=== PATIENT | male | born 1985 | race Caucasian/White ===

== ENCOUNTER 2016-09-04 19:33 | Emergency (ER) | payer MEDICAID, OTHER ==
[~2016-09-04] VITALS: Ht 185.4 cm; Wt 113.4 kg
[2016-09-04] MEDS ORDERED: DOXY100C37 PO (22:38)
[2016-09-04 22:43] VITALS: BP 140/79
[2016-09-04] MEDS ORDERED: DOXYCYCLINE HYCLATE 100 MG TAB PO ONE (22:45)
== END 2016-09-04 22:46 | disposition home or self-care (01) ==
LOC: M ED 20:24
DX: S80.861A Insect bite (nonvenomous), right lower leg, initial encounter (principal); X58.XXXA Exposure to other specified factors, initial encounter; Y92.89 Other specified places as the place of occurrence of the external cause; Y93.89 Activity, other specified; Y99.8 Other external cause status; F17.210 Nicotine dependence, cigarettes, uncomplicated

== ENCOUNTER 2016-11-21 14:26 | Emergency (ER) | payer OTHER ==
[~2016-11-21] VITALS: Ht 182.9 cm; Wt 136.0 kg
[~2016-11-21 14:26] MED LIST: DOXY100C37 PO
[2016-11-21] MEDS ORDERED: IBUPROFEN 800 MG TAB PO ONE (15:45)
[2016-11-21] MEDS ORDERED: METHOCARBAMOL 500 MG TAB PO ONE (15:45)
[2016-11-21] MEDS ORDERED: ROBA500T PO ×2 (16:28→16:59)
[2016-11-21] MEDS ORDERED: IBUP1TAB7 PO (16:28)
[2016-11-21 16:39] VITALS: BP 132/70
--- NOTE | 2016-11-21 16:44 | REP ---
LUMBOSACRAL SPINE: Five views of the lumbosacral spine performed. There is no fracture or dislocation. Vertebral bodies are normal in height and well aligned with normal lumbar lordosis. There is no spondylolysis or spondylolisthesis. Disc spaces are well preserved. Posterior elements are intact. IMPRESSION: Negative lumbosacral spine series. Signed by Al Whiting MD 11/22/2016 05:11 P
[2016-11-21] MEDS ORDERED: IBUP-1022 PO (16:59)
== END 2016-11-21 17:10 | disposition home or self-care (01) ==
LOC: M ED 16:52
DX: S39.012A Strain of muscle, fascia and tendon of lower back, initial encounter (principal); X50.1XXA Overexertion from prolonged static or awkward postures, initial encounter; Y92.9 Unspecified place or not applicable; Y93.9 Activity, unspecified; Y99.9 Unspecified external cause status

== ENCOUNTER → 2016-12-26 | Outpatient (CLI) | payer MEDICAID ==
[~2016-12-26] MED LIST changes: +IBUP-1022 PO; +IBUP1TAB7 PO; +NAPR500T PO; +ROBA500T PO; +SOMA350T PO; +TYLE325T5 PO
== END ==
LOC: M OUTALCOH 13:06
PROVIDERS: ATTEND Psychiatry & Neurology Psychiatry
DX: Z03.89 Encounter for observation for other suspected diseases and conditions ruled out (principal)

== ENCOUNTER → 2017-01-01 | Outpatient (CLI) | payer OTHER ==
--- NOTE | 2017-01-02 08:30 | REP ---
MRI LUMBAR SPINE WITHOUT CONTRAST: HISTORY: Back pain. Decreased signal intensity on T2 weighted images is present in the L3-4 through L5-S1 intervertebral discs. The discs are decreased in height. These findings are consistent with disc degeneration. There is no disc bulge or herniation at the L1-2 and L2-3 levels. The nerves exit the neural foramina without compression. A diffuse disc bulge is present at the L3-4 level. There is minimal compression of the thecal sac. The L3 nerves exit the neural foramina without compression. A diffuse disc bugle and small central disc protrusion are present at the L4-5 level. There is minimal compression of the thecal sac. The L4 nerves exit the neural foramina without compression. A diffuse disc bulge and small disc protrusion central and eccentric to the left are present at the L5-S1 level. The disc protrusion abuts the left S1 nerve. There is no thecal sac compression. The L5 nerves exit the neural foramina without compression. The conus medullaris is normal in appearance terminating at the level of the T12-L1 intervertebral disc. Normal signal intensity is present in the lumbar vertebral bodies. A hemangioma is present in the S1 vertebral body. IMPRESSION: 1. Diffuse disc bugle and the L3-4 level with minimal thecal sac compression. 2. Diffuse disc bugle and small central disc protrusion at the L4-5 level with minimal thecal sac compression. 3. Diffuse disc bugle and small disc protrusion at the L5-S1 level. The disc protrusion abuts the left S1 nerve. Signed by Mo Schroeder MD 01/02/2017 08:44 A
== END ==
LOC: M RAD 17:58
PROVIDERS: ATTEND Family Medicine
DX: M51.26 Other intervertebral disc displacement, lumbar region (principal); M51.27 Other intervertebral disc displacement, lumbosacral region

== ENCOUNTER 2017-02-12 19:12 | Emergency (ER) | payer OTHER ==
[~2017-02-12] VITALS: Ht 182.9 cm; Wt 137.4 kg
[~2017-02-12 19:12] MED LIST changes: -NAPR500T PO; -SOMA350T PO; -TYLE325T5 PO
[2017-02-12] MEDS ORDERED: IBUP1TAB7 PO (19:33)
[2017-02-12] MEDS ORDERED: TYLE325T5 PO (19:33)
[2017-02-12 21:48] VITALS: BP 137/77
[2017-02-12] MEDS ORDERED: KETOROLAC 60 MG/2 ML VIAL (J1885) IM ONE (22:15)
[2017-02-12] MEDS ORDERED: SOMA350T PO (22:20)
[2017-02-12] MEDS ORDERED: NAPR500T PO (22:20)
== END 2017-02-12 22:38 | disposition home or self-care (01) ==
LOC: M ED 19:12
DX: M54.5 Low back pain (principal); G89.29 Other chronic pain; F17.200 Nicotine dependence, unspecified, uncomplicated; Z79.899 Other long term (current) drug therapy
CPT/HCPCS: 96372; 99282; J1885; J3360

== ENCOUNTER 2017-02-18 08:59 | Outpatient (RCR) | payer OTHER ==
[~2017-02-18 08:59] MED LIST changes: +NAPR500T PO; +SOMA350T PO; +TYLE325T5 PO
== END 2017-03-02 ==
LOC: M PT 08:59
PROVIDERS: ATTEND Hospitalist
DX: Z51.89 Encounter for other specified aftercare (principal); M54.40 Lumbago with sciatica, unspecified side; G89.29 Other chronic pain

== ENCOUNTER 2017-03-08 12:00 | Outpatient (RCR) | payer OTHER | END 2017-04-02 | LOC: M PT 12:00 | PROVIDERS: ATTEND Hospitalist | DX: Z51.89 Encounter for other specified aftercare (principal); M54.40 Lumbago with sciatica, unspecified side ==

== ENCOUNTER → 2017-05-07 | Outpatient (REF) | payer OTHER ==
[2017-05-07 14:08] LABS: ALBUMIN/GLOBULIN RATIO 1.14 (1.00-1.93); ALKALINE PHOSPHATASE 81 U/L (45-117); ALT/SGPT 28 U/L (12-78); ANION GAP 6 MEQ/L (8-16); AST/SGOT 14 U/L (7-37); BILIRUBIN,TOTAL 0.4 MG/DL (0.2-1.0); BLOOD UREA NITROGEN 14 MG/DL (7-18); CARBON DIOXIDE LEVEL 30 MEQ/L (21-32); CHLORIDE LEVEL 105 MEQ/L (98-107); CHOLESTEROL LEVEL 182 MG/DL (<200); CREATININE FOR GFR 0.97 MG/DL (0.70-1.30); GLOMERULAR FILTRATION RATE > 60.0 (>60); GLUCOSE, FASTING 80 MG/DL (70-105); POTASSIUM SERUM 4.8 MEQ/L (3.5-5.1); SODIUM LEVEL 141 MEQ/L (136-145); TOTAL PROTEIN 7.5 GM/DL (6.4-8.2); TRIGLYCERIDES LEVEL 74 MG/DL (<150)
== END ==
LOC: M SFHCPLAZ 11:51
PROVIDERS: ATTEND Family Medicine
DX: E66.01 Morbid (severe) obesity due to excess calories (principal); Z83.49 Family history of other endocrine, nutritional and metabolic diseases

== ENCOUNTER 2017-07-01 13:00 | Emergency (ER) | payer MEDICAID, SELFPAY, OTHER | END 2017-07-01 17:13 | disposition home or self-care (01) | LOC: M ED 13:00 | DX: S39.012A Strain of muscle, fascia and tendon of lower back, initial encounter (principal); M54.32 Sciatica, left side; X50.1XXA Overexertion from prolonged static or awkward postures, initial encounter; Y92.9 Unspecified place or not applicable; Y93.9 Activity, unspecified; G89.29 Other chronic pain; Z79.899 Other long term (current) drug therapy | CPT/HCPCS: 99283 ==

== ENCOUNTER → 2017-09-29 | Outpatient (CLI) | payer OTHER | LOC: M RAD 09:52 | DX: S69.91XD Unspecified injury of right wrist, hand and finger(s), subsequent encounter (principal); X58.XXXD Exposure to other specified factors, subsequent encounter; Y92.89 Other specified places as the place of occurrence of the external cause | CPT/HCPCS: 73130 ==

== ENCOUNTER → 2017-09-29 | Outpatient (CLI) | payer OTHER ==
[2017-09-29 09:23] LABS: BASO # 0.1 10^3/uL (0.0-0.2); BASO % 0.9 % (0.0-1.0); EOS # 0.7 10^3/uL (0.0-0.50); EOS % 9.2 % (0.0-3.0); HEMATOCRIT 43.8 % (42.0-52.0); HEMOGLOBIN 15.3 g/dl (13.5-17.5); IMMATURE GRANULOCYTE % 0.7 % (0-3.0); LYMPH % 26.5 % (24.0-44.0); MEAN CORPUSCULAR HEMOGLOBIN 30.5 pg (27.0-33.0); MEAN CORPUSCULAR HGB CONC 34.9 g/dl (32.0-36.5); MEAN CORPUSCULAR VOLUME 87.4 fl (80.0-96.0); MONO # 0.7 10^3/uL (0.0-0.8); MONO % 8.5 % (0.0-5.0); NEUTROPHILS # 4.1 10^3/uL (1.8-7.7); NEUTROPHILS % 54.2 % (36.0-66.0); PLATELET COUNT, AUTOMATED 311 10^3/uL (150-450); RED BLOOD COUNT 5.01 10^6/uL (4.30-6.10); WHITE BLOOD COUNT 7.6 10^3/uL (4.0-10.0)
[2017-09-29 10:03] LABS: FREE T4 1.13 NG/DL (0.76-1.46)
[2017-09-30 10:31] LABS: HIV 1&2 SCREEN CENTAUR NEGATIVE (NEGATIVE)
== END ==
LOC: M LAB 08:57
DX: R61 Generalized hyperhidrosis (principal)
CPT/HCPCS: 84443

== ENCOUNTER → 2018-01-09 | Outpatient (CLI) | payer OTHER | LOC: M PAIN 14:15 | DX: M51.26 Other intervertebral disc displacement, lumbar region (principal); M54.17 Radiculopathy, lumbosacral region; F17.220 Nicotine dependence, chewing tobacco, uncomplicated; Z79.899 Other long term (current) drug therapy | CPT/HCPCS: G0463 ==

== ENCOUNTER 2018-02-10 19:02 | Emergency (ER) | payer OTHER ==
[2018-02-10] MEDS: PERCOCET 5MG/325MG TAB PO (21:11)
[2018-02-10] MEDS: diazePAM 5 MG TAB PO (21:11)
[2018-02-10] MEDS: KETOROLAC 60 MG/2 ML VIAL (J1885) IM (21:12)
== END 2018-02-10 23:46 | disposition home or self-care (01) ==
LOC: M ED 19:02
DX: M51.37 Other intervertebral disc degeneration, lumbosacral region (principal); F17.220 Nicotine dependence, chewing tobacco, uncomplicated
CPT/HCPCS: J1885

== ENCOUNTER → 2018-02-13 | Outpatient (CLI) | payer OTHER | LOC: M PAIN 11:30 | DX: M51.26 Other intervertebral disc displacement, lumbar region (principal); M54.17 Radiculopathy, lumbosacral region; F17.220 Nicotine dependence, chewing tobacco, uncomplicated; E66.01 Morbid (severe) obesity due to excess calories; Z68.43 Body mass index [BMI] 50.0-59.9, adult; Z79.899 Other long term (current) drug therapy | CPT/HCPCS: G0463 ==

== ENCOUNTER → 2018-03-06 | Outpatient (CLI) | payer OTHER ==
[~2018-03-06] MED LIST changes: -DOXY100C37 PO; -IBUP-1022 PO; -IBUP1TAB7 PO; +ISOVUE-M 300 61% 15ML VIAL (Q9967) As Ordered; +LIDOCAINE 1% SDV INJ 30 ML VIAL As Ordered; -NAPR500T PO; -ROBA500T PO; -SOMA350T PO; -TYLE325T5 PO; +diazePAM 5 MG TAB As Ordered; +methylPREDNISolone SUSP 40 MG/ML (DEPO-medrol) VIAL (J1030) As Ordered; +oxyCODONE 5MG TAB As Ordered
== END ==
LOC: M PAIN 11:15
DX: M51.16 Intervertebral disc disorders with radiculopathy, lumbar region (principal); F17.220 Nicotine dependence, chewing tobacco, uncomplicated; Z79.891 Long term (current) use of opiate analgesic; Z79.899 Other long term (current) drug therapy
CPT/HCPCS: J1030

== ENCOUNTER 2018-03-27 09:33 | Emergency (ER) | payer OTHER | END 2018-03-27 11:45 | disposition home or self-care (01) | LOC: M ED 09:33 | DX: S60.221A Contusion of right hand, initial encounter (principal); W22.8XXA Striking against or struck by other objects, initial encounter; Y92.018 Other place in single-family (private) house as the place of occurrence of the external cause; E11.9 Type 2 diabetes mellitus without complications | CPT/HCPCS: 73130 ==

== ENCOUNTER 2018-04-04 15:43 | Emergency (ER) | payer OTHER ==
[2018-04-04] MEDS: IBUPROFEN 800 MG TAB PO (16:30)
[2018-04-04] MEDS: ONDANSETRON 4 MG ORAL DISINTEGRATING TAB (Q0162 PER 1MG) PO (16:30)
[2018-04-04] MEDS: ACETAMINOPHEN 325 MG TAB PO (16:30)
[2018-04-04 16:48] LABS: INFLUENZA A AMPLIFICATION NEGATIVE (NEGATIVE); INFLUENZA B AMPLIFICATION NEGATIVE (NEGATIVE); RSV AMPLIFICATION NEGATIVE (NEGATIVE)
== END 2018-04-04 17:30 | disposition home or self-care (01) ==
LOC: M ED 15:43
DX: R11.2 Nausea with vomiting, unspecified (principal); R50.9 Fever, unspecified; G43.909 Migraine, unspecified, not intractable, without status migrainosus; Z72.0 Tobacco use
CPT/HCPCS: Q0162

== ENCOUNTER 2018-04-24 11:06 | Emergency (ER) | payer OTHER ==
[2018-04-24] MEDS: DOXYCYCLINE HYCLATE 100 MG TAB PO (11:41)
[2018-04-29 00:30] LABS: Lyme Disease IgG Ab 18 kDa Ban Present (.); Lyme Disease IgG Ab 23 kDa Ban Present (.); Lyme Disease IgG Ab 28 kDa Ban Absent (.); Lyme Disease IgG Ab 30 kDa Ban Absent (.); Lyme Disease IgG Ab 39 kDa Ban Present (.); Lyme Disease IgG Ab 41 kDa Ban Present (.); Lyme Disease IgG Ab 45 kDa Ban Absent (.); Lyme Disease IgG Ab 58 kDa Ban Absent (.); Lyme Disease IgG Ab 66 kDa Ban Absent (.); Lyme Disease IgG Ab 93 kDa Ban Absent (.); Lyme Disease IgG West Blot Int Negative (.); Lyme Disease IgG/IgM Antibodie 1.57 ISR (0.00-0.90); Lyme Disease IgM Ab 23 kDa Ban Present (.); Lyme Disease IgM Ab 39 kDa Ban Absent (.); Lyme Disease IgM Ab 41 kDa Ban Present (.); Lyme Disease IgM Ab Quantitati 6.58 index (0.00-0.79); Lyme Disease IgM West Blot Int Positive (.)
== END 2018-04-24 11:40 | disposition home or self-care (01) ==
LOC: M ED 11:06
DX: A26.0 Cutaneous erysipeloid (principal)
CPT/HCPCS: 86617

== ENCOUNTER 2018-06-28 02:36 | Emergency (ER) | payer OTHER ==
[~2018-06-28] VITALS: Ht 182.9 cm; Wt 136.4 kg
[~2018-06-28 02:36] MED LIST changes: +DOXY-350 PO; +DOXY100C37 PO; +DULO1CAP PO; +IBUP-1022 PO; +IBUP1TAB7 PO; -ISOVUE-M 300 61% 15ML VIAL (Q9967) As Ordered; +LEVOTAB10 PO; -LIDOCAINE 1% SDV INJ 30 ML VIAL As Ordered; +MEDR4PAK PO; +NAPR-50 PO; +PRED20TA PO; +ROBA500T PO; +SOMA350T PO; +TYLE325T5 PO; +ULTR50TA8 PO; +VALI5TAB PO; +ZOFR4TAB14 PO; -diazePAM 5 MG TAB As Ordered; -methylPREDNISolone SUSP 40 MG/ML (DEPO-medrol) VIAL (J1030) As Ordered; -oxyCODONE 5MG TAB As Ordered
[2018-06-28] MEDS ORDERED: PANTOPRAZOLE 40MG TAB (PROTONIX) PO ONE (03:45)
[2018-06-28 04:03] LABS: BASO # 0.1 10^3/uL (0.0-0.2); BASO % 1.1 % (0.0-1.0); EOS # 0.6 10^3/uL (0.0-0.50); EOS % 8.3 % (0.0-3.0); HEMATOCRIT 39.2 % (42.0-52.0); HEMOGLOBIN 13.3 g/dl (13.5-17.5); LYMPH # 2.4 10^3/uL (1.5-4.5); LYMPH % 33.7 % (24.0-44.0); MEAN CORPUSCULAR HEMOGLOBIN 30.3 pg (27.0-33.0); MEAN CORPUSCULAR HGB CONC 33.9 g/dl (32.0-36.5); MEAN CORPUSCULAR VOLUME 89.3 fl (80.0-96.0); MONO # 0.6 10^3/uL (0.0-0.8); MONO % 8.5 % (0.0-5.0); NEUTROPHILS # 3.5 10^3/uL (1.8-7.7); PLATELET COUNT, AUTOMATED 250 10^3/uL (150-450); RED BLOOD COUNT 4.39 10^6/uL (4.30-6.10); WHITE BLOOD COUNT 7.2 10^3/uL (4.0-10.0)
[2018-06-28] MEDS ORDERED: GI COCKTAIL 50ML BTL(HYOSCYAMINE/MAALOX/LIDOCAINE VISCOUS)(1:3:1) PO ONE (04:15)
[2018-06-28 04:30] LABS: ALBUMIN 3.8 GM/DL (3.2-5.2); ALT/SGPT 31 U/L (12-78); BILIRUBIN,DIRECT 0.1 MG/DL (0.0-0.2); BILIRUBIN,TOTAL 0.3 MG/DL (0.2-1.0); BLOOD UREA NITROGEN 12 MG/DL (7-18); CALCIUM LEVEL 8.4 MG/DL (8.5-10.1); CARBON DIOXIDE LEVEL 26 MEQ/L (21-32); CHLORIDE LEVEL 107 MEQ/L (98-107); CREATININE FOR GFR 0.96 MG/DL (0.70-1.30); GLOMERULAR FILTRATION RATE > 60.0 (>60); GLUCOSE, FASTING 101 MG/DL (70-100); LIPASE 126 U/L (73-393); POTASSIUM SERUM 4.2 MEQ/L (3.5-5.1); SODIUM LEVEL 141 MEQ/L (136-145); TOTAL PROTEIN 7.2 GM/DL (6.4-8.2)
[2018-06-28] MEDS ORDERED: SUCRALFATE SUSP 1GM/10ML UD PO ONE (05:30)
[2018-06-28 05:45] VITALS: BP 143/97
[2018-06-28] MEDS ORDERED: RANI15TA PO (05:58)
[2018-06-28] MEDS ORDERED: OMEP40CA2 PO (05:58)
[2018-06-28] MEDS ORDERED: CARA1TAB6 PO (05:58)
--- NOTE | 2018-06-28 08:17 | REP ---
Clinical: Epigastric and abdominal pain. Technique: Upright view of the chest with supine and upright views of the abdomen and pelvis. Findings: Frontal upright view of the chest demonstrates no acute cardiopulmonary process or free air below the diaphragm to suspect pneumoperitoneum. Supine and upright views of the abdomen and pelvis demonstrate nonspecific bowel gas pattern without obstruction or perforation. No organomegaly. No abnormal calcifications. Skeletal structures normal for age. Impression: Nonspecific bowel gas pattern. Electronically Signed by Master Darnell MD 06/28/2018 08:09 A
== END 2018-06-28 06:13 | disposition home or self-care (01) ==
LOC: M ED 02:36
DX: K29.70 Gastritis, unspecified, without bleeding (principal); R10.13 Epigastric pain; R73.03 Prediabetes

== ENCOUNTER 2018-12-31 00:43 | Emergency (ER) | payer OTHER ==
[~2018-12-31] VITALS: Ht 182.9 cm; Wt 127.3 kg
[~2018-12-31 00:43] MED LIST changes: +CARA1TAB6 PO; -DULO1CAP PO; +DULO1CAP4 PO; -NAPR-50 PO; +NAPR-837 PO; +OMEP40CA2 PO; +RANI15TA PO
[2018-12-31 00:44] VITALS: BP 142/107
[2018-12-31] MEDS ORDERED: KETOROLAC 60 MG/2 ML VIAL (J1885) IM ONE (03:45)
[2018-12-31] MEDS ORDERED: methylPREDNISolone INJ 125 MG/2 ML VIAL (J2930) IM ONE (03:45)
[2018-12-31] MEDS ORDERED: PRED20TA PO (04:16)
[2018-12-31] MEDS ORDERED: KETO10TAB PO (04:16)
--- NOTE | 2018-12-31 07:47 | REP ---
Clinical: Pain. Plantar fasciitis. Technique: AP, lateral views of the right and left foot. Findings: Lateral views demonstrate small bilateral calcaneal heel spurs (left greater than right). No abnormal soft tissue calcifications are identified bilaterally. The osseous structures and joint spaces are otherwise symmetric and normal. Impression: Small heel spurs noted (left greater than right). Electronically Signed by Master Darnell MD 12/31/2018 07:39 A
== END 2018-12-31 04:39 | disposition home or self-care (01) ==
LOC: M ED 00:43
DX: M72.2 Plantar fascial fibromatosis (principal); M77.32 Calcaneal spur, left foot; M77.31 Calcaneal spur, right foot; G89.29 Other chronic pain; M54.9 Dorsalgia, unspecified; M79.673 Pain in unspecified foot
CPT/HCPCS: 73620; 96372; 99283; J1885; J2930

== ENCOUNTER 2019-06-09 20:07 | Emergency (ER) | payer OTHER, SELFPAY ==
[~2019-06-09] VITALS: Ht 182.9 cm; Wt 119.4 kg
[~2019-06-09 20:07] MED LIST changes: +KETO10TAB PO; -OMEP40CA2 PO; +OMEP40CA97 PO
[2019-06-09] MEDS ORDERED: GABA-843 PO (20:15)
[2019-06-09] MEDS ORDERED: KETOROLAC 30 MG/ML VIAL (J1885) IM ONE (23:15)
[2019-06-09 23:29] VITALS: BP 126/71
[2019-06-10 00:08] LABS: BASO # 0.1 10^3/uL (0.0-0.2); BASO % 0.7 % (0.0-1.0); EOS # 0.4 10^3/uL (0.0-0.5); EOS % 4.1 % (0.0-3.0); HEMATOCRIT 44.4 % (42.0-52.0); HEMOGLOBIN 14.6 g/dl (13.5-17.5); LYMPH % 34.1 % (24.0-44.0); MEAN CORPUSCULAR HEMOGLOBIN 30.1 pg (27.0-33.0); MEAN CORPUSCULAR HGB CONC 32.9 g/dl (32.0-36.5); MEAN CORPUSCULAR VOLUME 91.5 fl (80.0-96.0); MONO # 0.9 10^3/uL (0.0-0.8); NEUTROPHILS # 4.4 10^3/uL (1.5-8.5); NEUTROPHILS % 50.2 % (36.0-66.0); PLATELET COUNT, AUTOMATED 297 10^3/uL (150-450); RED BLOOD COUNT 4.85 10^6/uL (4.30-6.10); WHITE BLOOD COUNT 8.8 10^3/uL (4.0-10.0)
[2019-06-10 00:29] LABS: ERYTHROCYTE SEDIMENTATION RATE 7 mm/hr (0-15)
[2019-06-10 00:39] LABS: C REACTIVE PROTEIN QUANTITATIV < 0.30 MG/DL (0.00-0.30); MAGNESIUM LEVEL 2.3 MG/DL (1.8-2.4); URIC ACID 5.9 MG/DL (3.5-7.2)
[2019-06-10] MEDS ORDERED: IBUP80TA PO (00:44)
== END 2019-06-10 01:09 | disposition home or self-care (01) ==
LOC: M ED 20:07
DX: M72.2 Plantar fascial fibromatosis (principal); M51.9 Unspecified thoracic, thoracolumbar and lumbosacral intervertebral disc disorder; G89.29 Other chronic pain; M54.9 Dorsalgia, unspecified; M54.16 Radiculopathy, lumbar region; G43.909 Migraine, unspecified, not intractable, without status migrainosus; Z79.899 Other long term (current) drug therapy
CPT/HCPCS: 80047; 83735; 84550; 85025; 85652; 86140; 96372; 99283; J1885

== ENCOUNTER 2021-12-31 03:02 | Inpatient (IN) | payer MEDICAID, OTHER ==
[~2021-12-31] VITALS: Ht 182.9 cm; Wt 125.5 kg
[~2021-12-31 03:02] MED LIST changes: +DOXY-443 PO; -DOXY100C37 PO; +GABA-282 PO; +IBUP80TA PO; +OMEP40CA4 PO; -OMEP40CA97 PO
[2021-12-31 03:53] LABS: HEMATOCRIT 46.6 % (42.0-52.0); MEAN CORPUSCULAR HEMOGLOBIN 30.9 pg (27.0-33.0); MEAN CORPUSCULAR HGB CONC 34.3 g/dl (32.0-36.5); MEAN CORPUSCULAR VOLUME 90.1 fl (80.0-96.0); PLATELET COUNT, AUTOMATED 352 10^3/uL (150-450); RED BLOOD COUNT 5.17 10^6/uL (4.30-6.10); WHITE BLOOD COUNT 11.8 10^3/uL (4.0-10.0)
[2021-12-31 04:39] LABS: AMPHETAMINES LEVEL URINE NEGATIVE (NEGATIVE); BARBITURATES URINE NEGATIVE (NEGATIVE); BENZODIAZEPINES URINE NEGATIVE (NEGATIVE); CANNABINOIDS URINE POSITIVE (NEGATIVE); COCAINE METABOLITE URINE NEGATIVE (NEGATIVE); METHADONE URINE NEGATIVE (NEGATIVE); OPIATES URINE NEGATIVE (NEGATIVE); PHENCYCLIDINE URINE NEGATIVE (NEGATIVE)
[2021-12-31 04:45] LABS: RSV AMPLIFICATION NEGATIVE (NEGATIVE)
[2021-12-31 04:54] LABS: ACETAMINOPHEN LEVEL < 2.0 UG/ML (10.0-30.0); ALBUMIN 4.2 GM/DL (3.2-5.2); ALT/SGPT 51 U/L (12-78); BILIRUBIN,DIRECT < 0.1 MG/DL (0.0-0.2); BILIRUBIN,TOTAL 0.3 MG/DL (0.2-1.0); BLOOD UREA NITROGEN 11 MG/DL (7-18); CALCIUM LEVEL 9.2 MG/DL (8.5-10.1); CARBON DIOXIDE LEVEL 22 MEQ/L (21-32); CHLORIDE LEVEL 111 MEQ/L (98-107); CREATININE FOR GFR 0.98 MG/DL (0.70-1.30); ETHYL ALCOHOL (ETHANOL) 0.209 % (0.000-0.010); GLOMERULAR FILTRATION RATE > 60.0 (>60); GLUCOSE, FASTING 120 MG/DL (70-100); POTASSIUM SERUM 3.8 MEQ/L (3.5-5.1); SALICYLATE LEVEL < 1.7 MG/DL (5.0-30.0); SODIUM LEVEL 144 MEQ/L (136-145)
[2021-12-31] MEDS ORDERED: med rec comment (05:08)
[2021-12-31] MEDS ORDERED: HOME MED LIST COMPLETE! XX SCH (05:10)
[2022-01-01] MEDS: MULTIVITAMINS/MINERALS THERAP 1 TAB PO SCH (09:00)
[2022-01-01] MEDS: FOLIC ACID 1MG TAB PO SCH (09:00)
[2022-01-01] MEDS: NICOTINE 21MG/24HR 1 EA TRANSDERMAL TD SCH (09:00)
[2022-01-01] MEDS ORDERED: traZODone 50 MG TAB PO PRN (13:50)
[2022-01-01] MEDS ORDERED: diphenhydrAMINE 25MG CAP PO PRN (13:50)
[2022-01-01] MEDS ORDERED: IBUPROFEN 400MG TAB PO PRN (13:50)
[2022-01-01] MEDS ORDERED: MOM 30ML SUSPENSION UDC PO PRN (13:50)
[2022-01-01] MEDS ORDERED: LORazepam 2 MG TAB PO PRN (13:50)
[2022-01-01] MEDS ORDERED: MAALOX 30 ML SUSP *UDC PO PRN (13:50)
[2022-01-01] MEDS: THIAMINE 100 MG TAB PO SCH ×2 (14:29→14:32)
[2022-01-01 16:37] VITALS: BP 153/105
[2022-01-01 22:00] VITALS: BP 142/90
[2022-01-02 06:24] VITALS: BP 134/76
[2022-01-02 06:29] VITALS: BP 134/76
[2022-01-02] MEDS: THIAMINE 100 MG TAB PO SCH (09:13)
[2022-01-02] MEDS: FOLIC ACID 1MG TAB PO SCH (09:13)
[2022-01-02] MEDS: MULTIVITAMINS/MINERALS THERAP 1 TAB PO SCH (09:13)
[2022-01-02] MEDS: NICOTINE 21MG/24HR 1 EA TRANSDERMAL TD SCH (09:14)
[2022-01-02 15:49] VITALS: BP 154/97
[2022-01-02 17:56] VITALS: BP 128/88
[2022-01-03 06:30] VITALS: BP 149/92
[2022-01-03] MEDS: MULTIVITAMINS/MINERALS THERAP 1 TAB PO SCH (08:35)
[2022-01-03] MEDS: FOLIC ACID 1MG TAB PO SCH (08:35)
[2022-01-03] MEDS: NICOTINE 21MG/24HR 1 EA TRANSDERMAL TD SCH (08:36)
[2022-01-03] MEDS: SERTRALINE HCL 50 MG TAB PO SCH (09:45)
[2022-01-03 17:41] VITALS: BP 146/82
[2022-01-04 06:44] VITALS: BP 147/88
[2022-01-04] MEDS: NICOTINE 21MG/24HR 1 EA TRANSDERMAL TD SCH (08:30)
[2022-01-04] MEDS: SERTRALINE HCL 50 MG TAB PO SCH (08:30)
[2022-01-04] MEDS: MULTIVITAMINS/MINERALS THERAP 1 TAB PO SCH (08:30)
[2022-01-04] MEDS: FOLIC ACID 1MG TAB PO SCH (08:31)
[2022-01-04] MEDS ORDERED: SERT50TA29 PO (11:06)
[2022-01-04] MEDS ORDERED: VITMTA PO (11:06)
[2022-01-04] MEDS ORDERED: FOLI1TAB11 PO (11:06)
== END 2022-01-04 12:29 | disposition home or self-care (01) | DRG 754 ==
LOC: M ED 03:02 → M ED INP 01-01 13:50 → M PSY 01-01 16:29
PROVIDERS: ADMIT Student in an Organized Health Care Education/Training Program; ATTEND Student in an Organized Health Care Education/Training Program
DX: F32.A Depression, unspecified (principal); R45.851 Suicidal ideations; F12.90 Cannabis use, unspecified, uncomplicated; F41.1 Generalized anxiety disorder; F10.10 Alcohol abuse, uncomplicated; F43.23 Adjustment disorder with mixed anxiety and depressed mood; F17.220 Nicotine dependence, chewing tobacco, uncomplicated; F32.9 Major depressive disorder, single episode, unspecified